=== PATIENT | female | born 1995 | race Caucasian/White ===

== ENCOUNTER 2016-06-13 20:33 | Emergency (ER) | payer BC ==
[~2016-06-13] VITALS: Ht 172.7 cm; Wt 75.3 kg
[~2016-06-13 20:33] MED LIST: IBUP-232 PO; Z.0.BCPILL PO
[2016-06-13 20:36] VITALS: BP 110/80; PULSE 80; RESP 14; TEMP 99.7; O2SAT 99
[2016-06-13] MEDS ORDERED: OFFICE MEDICATION (21:26)
[2016-06-13] MEDS ORDERED: CRYS28TA PO (21:28)
[2016-06-13 21:50] VITALS: O2SAT 99
[2016-06-13 21:52] LABS: BLOOD, URINE NEG (NEG); GLUCOSE,URINE NEG (NEG); KETONE, URINE NEG (NEG); NITRITE,URINE NEG (NEG)
[2016-06-13 21:54] LABS: AUTOMATED NEUTROPHIL # 5.3 TH/MM3 (1.8-7.7); BASOPHIL % 0.5 % (0.0-2.0); EOSINOPHIL # 0.1 TH/MM3 (0-0.4); EOSINOPHIL % 1.3 % (0.0-4.0); HEMATOCRIT 42.6 % (35.0-46.0); HEMO FLAGS DIFF FINAL; LYMPH % 25.2 % (9.0-44.0); MEAN CELL VOLUME 88.6 FL (80.0-100.0); MEAN CORPUSCULAR HEMOGLOBIN 30.1 PG (27.0-34.0); MONO % 6.9 % (0.0-8.0); NEUT % 66.1 % (16.0-70.0); PLATELET COUNT 274 TH/MM3 (150-450); RED BLOOD COUNT 4.81 MIL/MM3 (4.00-5.30); RED CELL DISTRIBUTION WIDTH 12.2 % (11.6-17.2)
[2016-06-13 21:58] LABS: URINE COLOR YELLOW (YELLW/STRAW)
[2016-06-13 22:00] VITALS: BP 121/69; PULSE 81; RESP 18; O2SAT 99
[2016-06-13 22:00] LABS: SQUAMOUS EPITHELIAL CELL URINE 0-5 /hpf (0-5)
[2016-06-13 22:01] LABS: COMMENT (UR) CULT NOT INDICATED; CULTURE IF INDICATED CULT NOT INDICATED
[2016-06-13 22:03] LABS: CHLORIDE 105 MEQ/L (98-107); POTASSIUM 3.6 MEQ/L (3.5-5.1); SODIUM (NA) 140 MEQ/L (136-145)
[2016-06-13 22:07] LABS: ANION GAP 8 MEQ/L (5-15); BICARBONATE 26.6 MEQ/L (21.0-32.0); BLOOD UREA NITROGEN 11 MG/DL (7-18)
[2016-06-13 22:10] LABS: ALT (GPT) 23 U/L (10-53); AST (GOT) 17 U/L (15-37); GLOMERULAR FILTRATION RATE 96 ML/MIN (>89)
[2016-06-13 22:11] LABS: TOTAL BILIRUBIN ADULT 0.7 MG/DL (0.2-1.0)
[2016-06-13 22:13] LABS: ALKALINE PHOSPHATASE 51 U/L (45-117)
[2016-06-13 23:10] VITALS: BP 101/66; PULSE 76; RESP 18; TEMP 97.9; O2SAT 99
--- NOTE | 2016-06-13 23:35 | RADHPO ---
EXAM DATE/TIME: 06/13/2016 23:10 [place] COMPARISON: No previous studies available for comparison. INDICATIONS : Right lower quadrant pain. ORAL CONTRAST: No oral contrast ingested. RADIATION DOSE: 16.80 CTDIvol (mGy) MEDICAL HISTORY : None SURGICAL HISTORY : None. ENCOUNTER: Initial ACUITY: 3 days PAIN SCALE: 6/10 LOCATION: Right lower quadrant TECHNIQUE: Volumetric scanning of the abdomen and pelvis was performed. Using automated exposure control and ad justment of the mA and/or kV according to patient size, radiation dose was kept as low as reasonably achievable to obtain optimal diagnostic quality images. FINDINGS: LOWER LUNGS: The visualized lower lungs are clear. LIVER: Homogeneous density without lesion. There is no dilation of the biliary tree. No calcified gallston es. SPLEEN: Slightly enlarged without lesion. PANCREAS: Within normal limits. KIDNEYS: Normal in size and shape. There is no mass, stone, or hydronephrosis. ADRENAL GLANDS: Within normal limits. VASCULAR: There is no aortic aneurysm. BOWEL/MESENTERY: The stomach, small bowel, and colon demonstrate no acute abnormality. There is no free intraperitone al air or fluid. Normal appendix. ABDOMINAL WALL: Within normal limits. RETROPERITONEUM: There is no lymphadenopathy. BLADDER: No wall thickening or mass. REPRODUCTIVE: Within normal limits. INGUINAL: There is no lymphadenopathy or hernia. MUSCULOSKELETAL: Within normal limits for patient age. CONCLUSION: 1. No renal calculi or hydronephrosis. 2. Normal appendix. Luis Olguin MD on June 13, 2016 at 23:29 Board Certified Radiologist. This report was verified electronically.
--- NOTE | 2016-06-14 00:05 | PD ---
HPI Chief Complaint: Abdominal Pain Time Seen by Provider: 22:38 Travel History International Travel<30 days: No Contact w/Intl Traveler<30days: No Traveled to known affect area: No History of Present Illness HPI 21 year-old female presents to the emergency department for evaluation of right lower quadrant abdominal pain intermittently over the past several months. Pain worsening. Patient decided to come at this time for evaluation. Patient rates pain as 6/10 in intensity. No fever no chills no anorexia no vomiting no diarrhea dysuria frequency urgency vaginal discharge or vaginal bleeding. No report of trauma. PFSH Past Medical History Narrative Medical Negative past medical history negative surgical history immunizations current no tobacco use nursing notes reviewed Diabetes: No Diminished Hearing: No Immunizations Current: Yes (SCHOOL SHOTS UTD) Tetanus Vaccination: > 5 Years Influenza Vaccination: No ?: Not LMP: 1-2 weeks ago Past Surgical History Surgical History: No Previous Surgery Social History Alcohol Use: Yes (Occasionally) Tobacco Use: No Substance Use: No Allergies-Medications (Allergen,Severity, Reaction): Coded Allergies: No Known Allergies (Verified , 06/13/16) Reported Meds & Prescriptions Reported Meds & Active Scripts Active Anaprox DS (Naproxen Sodium) 550 Mg Tab 550 Mg PO Q12HR PRN Reported Cryselle-28 (Norgestrel-Ethinyl Estradiol) 0.3-30 Mg-Mcg Tab 1 Tab PO DAILY Review of Systems Except as stated in HPI: all other systems reviewed are Neg Physical Exam Narrative GENERAL: Well-developed well-nourished female SKIN: Warm and dry. HEAD: Normocephalic. EYES: No scleral icterus. No injection or drainage. NECK: Supple, trachea midline. No JVD or lymphadenopathy. CARDIOVASCULAR: Regular rate and rhythm without murmurs, gallops, or rubs. RESPIRATORY: Breath sounds equal bilaterally. No accessory muscle use. GASTROINTESTINAL: Abdomen soft, non-tender, nondistended. MUSCULOSKELETAL: No cyanosis, or edema. BACK: Nontender without obvious deformity. No CVA tenderness. Data Data Last Documented VS Orders Complete Blood Count With Diff (06/13/16 21:35) Comprehensive Metabolic Panel (06/13/16 21:35) Urinalysis - C+S If Indicated (06/13/16 21:35) Ed Urine Pregnancytest Poc (06/13/16 21:35) Iv Access Insert/Monitor (06/13/16 21:35) Oximetry (06/13/16 21:35) Lipase (06/13/16 21:35) Ct Abd/Pel W/O Iv Contrast (06/13/16 ) Ketorolac Inj (Toradol Inj) (06/14/16 00:30) Labs MDM Medical Decision Making Medical Screen Exam Complete: Yes Emergency Medical Condition: Yes Medical Record Reviewed: Yes Interpretation(s) cbc: wnl metabolic panel: wnl ua: wnl poc hcg: negative CT abd/pel: CONCLUSION: 1. No renal calculi or hydronephrosis. 2. Normal appendix. Luis Olguin MD on June 13, 2016 at 23:29 Board Certified Radiologist. This report was verified electronically. Differential Diagnosis Abdominal pain, gastritis, gastroenteritis, appendicitis, UTI, ruptured ovarian cyst, ovarian torsion, ectopic , renal colic, pyelonephritis Narrative Course IV access obtained specimens collected and sent for resulting imaging studies ordered Patient administered fluids and pain medication with symptomatic relief. Patient informed of lab results imaging results in stable for outpatient management. Diagnosis Primary Impression: Abdominal pain Qualified Code: R10.30 - Lower abdominal pain Referrals: Family Practice Physician call for appointment Patient Instructions: General Instructions Departure Forms: Tests/Procedures, Work Release Special Instructions: No work times one day Additional Instructions: Take medication as prescribed Follow-up with your primary care provider/[employer] Return to the emergency department for any concerns or change in condition No work times one day Med/Other Pt SpecificInfo: Prescription(s) given Scripts Naproxen Sodium DS (Anaprox DS)550 Mg [id number] Mg PO Q12HR PRN (PAIN GREATER THAN 5) #10 TAB Ref 0 Prov:Marija Shoemaker MD 06/14/16 Disposition: 01 DISCHARGE HOME Condition: Stable Marija Shoemaker MD Jun 14, 2016 00:05 (AST/SGOT) Alanine Aminotransferase 23 U/L (ALT/SGPT) Alkaline Phosphatase 51 U/L Total Protein 7.9 GM/DL Albumin 3.8 GM/DL Lipase 126 U/L Urine Color YELLOW Urine Turbidity CLEAR Urine pH 8.0 Urine Specific [place] 1.021 Urine Protein NEG mg/dL Urine Glucose (UA) NEG mg/dL Urine Ketones NEG mg/dL Urine Occult Blood NEG Urine Nitrite NEG Urine Bilirubin NEG Urine Leukocyte Esterase NEG Urine Squamous Epithelial 0-5 /hpf Cells Microscopic Urinalysis Comment CULT NOT INDICATED MDM Medical Decision Making Medical Screen Exam Complete: Yes Emergency Medical Condition: Yes Medical Record Reviewed: Yes Interpretation(s) cbc: wnl metabolic panel: wnl ua: wnl poc hcg: negative CT abd/pel: CONCLUSION: 1. No renal calculi or hydronephrosis. 2. Normal appendix. Luis Olguin MD on June 13, 2016 at 23:29 Board Certified Radiologist. This report was verified electronically. Diagnosis Primary Impression: Abdominal pain Qualified Code: R10.30 - Lower abdominal pain Referrals: Family Practice Physician call for appointment Patient Instructions: General Instructions Departure Forms: Tests/Procedures, Work Release Special Instructions: No work times one day Additional Instructions: Take medication as prescribed Follow-up with your primary care provider/[employer] Return to the emergency department for any concerns or change in condition No work times one day Med/Other Pt SpecificInfo: Prescription(s) given Scripts Naproxen Sodium DS (Anaprox DS)550 Mg [id number] Mg PO Q12HR PRN (PAIN GREATER THAN 5) #10 TAB Ref 0 Prov:Marija Shoemaker MD 06/14/16 Marija Shoemaker MD Jun 14, 2016 00:05
[2016-06-14] MEDS ORDERED: NAPR550 PO (00:22)
[2016-06-14 00:27] VITALS: BP 117/79; PULSE 75; RESP 18; O2SAT 99
[2016-06-14] MEDS ORDERED: KETOROLAC TROMETHAMINE 30 MG/ML (IVP) VIAL IV PUSH ONE (00:30)
== END 2016-06-14 00:53 | disposition home or self-care (01) ==
LOC: PHED 20:33
DX: R10.31 Right lower quadrant pain (principal)
CPT/HCPCS: 74176; 80053; 81001; 83690; 84703; 85025; J1885; 96374